=== PATIENT | female | born 1995 | race Caucasian/White ===

== ENCOUNTER → 2021-11-06 | Outpatient (REF) | payer BC ==
[2021-11-06 16:10] LABS: CHOLESTEROL RISK RATIO 4.209 (<5)
== END ==
LOC: M WUC 15:24 → M LAB REF 15:24
PROVIDERS: ATTEND Family Medicine
DX: Z13.220 Encounter for screening for lipoid disorders (principal)

== ENCOUNTER → 2023-11-25 | Outpatient (CLI) | payer OTHER ==
[2023-11-25 17:23] LABS: FREE T4 0.92 NG/DL (0.89-1.76)
[2023-11-25 17:24] LABS: THYROID STIMULATING HORMONE 1.953 uIU/ML (0.55-4.78)
== END ==
LOC: M WUC 13:04
PROVIDERS: ATTEND Family Medicine
DX: R63.5 Abnormal weight gain (principal)

== ENCOUNTER 2024-03-05 11:37 | Emergency (ER) | payer OTHER ==
[~2024-03-05] VITALS: Ht 157.5 cm; Wt 75.6 kg
[2024-03-05] MEDS ORDERED: SYED1TAB2 (14:25)
[2024-03-05 14:26] LABS: BASO # 0.1 10^3/uL (0.0-0.2); BASO % 0.6 % (0.0-1.0); EOS # 0.2 10^3/uL (0.0-0.5); EOS % 1.5 % (0.0-3.0); HEMATOCRIT 44.9 % (36.0-47.0); HEMOGLOBIN 14.8 g/dl (12.0-15.5); LYMPH % 38.5 % (24.0-44.0); MEAN CORPUSCULAR HEMOGLOBIN 29.1 pg (27.0-33.0); MEAN CORPUSCULAR VOLUME 88.4 fl (80.0-96.0); MONO # 0.9 10^3/uL (0.0-0.8); MONO % 8.3 % (2.0-8.0); NEUTROPHILS # 5.2 10^3/uL (1.5-8.5); NEUTROPHILS % 50.7 % (36.0-66.0); PLATELET COUNT, AUTOMATED 327 10^3/uL (150-450); RED BLOOD COUNT 5.08 10^6/uL (4.00-5.40); WHITE BLOOD COUNT 10.3 10^3/uL (4.0-10.0)
[2024-03-05 15:11] LABS: LIPASE 35 U/L (12-53)
[2024-03-05 15:14] LABS: ALKALINE PHOSPHATASE 69 U/L (46-116); ALT/SGPT 134 U/L (7.0-40); AST/SGOT 52 U/L (<34); BILIRUBIN,DIRECT < 0.1 MG/DL (<0.4); BILIRUBIN,TOTAL 0.4 MG/DL (0.3-1.2); BLOOD UREA NITROGEN 13 MG/DL (9-23); CALCIUM LEVEL 9.4 MG/DL (8.5-10.1); CARBON DIOXIDE LEVEL 27 MMOL/L (20-31); CHLORIDE LEVEL 103 MMOL/L (98-107); GLOMERULAR FILTRATION RATE > 60.0 (>60); GLUCOSE, FASTING 78 MG/DL (60-100); POTASSIUM SERUM 4.9 MMOL/L (3.5-5.1); SODIUM LEVEL 136 MMOL/L (136-145)
[2024-03-05 15:23] LABS: HCG, SERUM QUALITATIVE NEGATIVE (NEGATIVE)
[2024-03-05 17:59] LABS: Trichomonas vaginalis (AMP) NOT DETECTED (NEGATIVE)
[2024-03-05 18:23] LABS: GC DNA AMPLIFICATION NEGATIVE (NEGATIVE)
[2024-03-05 19:03] VITALS: BP 121/86; TEMP 98.3; O2SAT 99
== END 2024-03-05 19:05 | disposition home or self-care (01) ==
LOC: M ED 11:37
DX: R10.9 Unspecified abdominal pain (principal); N83.209 Unspecified ovarian cyst, unspecified side; K59.00 Constipation, unspecified; K21.9 Gastro-esophageal reflux disease without esophagitis; J45.909 Unspecified asthma, uncomplicated

== ENCOUNTER → 2024-05-21 | Outpatient (CLI) | payer OTHER ==
[~2024-05-21] MED LIST: SYED1TAB2
== END ==
LOC: M RAD 12:03
PROVIDERS: ATTEND Urology
DX: R31.21 Asymptomatic microscopic hematuria (principal)